=== PATIENT | female | born 1975 | race Caucasian/White ===

== ENCOUNTER 2016-12-05 16:14 | Emergency (ER) | payer OTHER ==
[~2016-12-05] VITALS: Ht 157.5 cm; Wt 108.2 kg
[2016-12-05 16:21] VITALS: BP 176/115; PULSE 83; RESP 18; O2SAT 100
[2016-12-05 17:18] LABS: BASOPHILS % (AUTO) 0.6 % (0-3); Mean Corpuscular Hemoglobin 20.7 pg (27.0-35.0)
[2016-12-05 17:23] LABS: EOSINOPHILS % (AUTO) 2.7 % (0-5); MONOCYTES % (AUTO) 8.2 % (4-12); Mean Corpuscular Volume 63.8 fL (81-100); NEUTROPHILS % (AUTO) 57.6 % (40-74); Platelet Count 407 bil/L (150-400)
--- NOTE | 2016-12-05 18:18 | ED.REPORT ---
HPI-General Illness Date of Service Dec 05, 2016 ED Provider: Dr. Rosangela Suazo M.D. A 41 year old female presents to the ED with hypertension (high of 230/150) onset yesterday. The patient began feeling ill in the morning, with symptoms of shakiness, nausea, dizziness, and headache, and subsequently checked her blood pressure at work. The patient's headache waxes and wanes, is dull in nature, and is rated 7/10 at worst. She denies vision change, numbness, weakness, vomiting, fever, or other symptoms. She has not had similar symptoms in the past. The patient was seen yesterday at the [facility] and was given a prescription for Lisinopril, which she took last night at 2200 with no relief. The patient has an appointment scheduled with her PCP in two weeks. Nursing Notes Stated Complaint: BP IS 210/120 Chief Complaint: General Complaint Nursing Notes Reviewed: Yes Allergies: Coded Allergies: Penicillins (Verified Allergy, Unknown, 12/05/16) Scheduled Hydrochlorothiazide (Hydrochlorothiazide) 12.5 Mg Tablet 12.5 MG PO DAILY General Time Seen by MD: 18:18 Chief Complaint Other (Hypertension) Hx Obtained From: Patient Arrived By: Walk-in Sudden in Onset?: Yes Onset Occurred: Yesterday Symptom Duration: Since onset Location: : Head Quality: Dull, Painful Severity: Current: Moderate Severity: Maximum: Pain level 7 out of 10 Associated with: Reports: Dizziness, Nausea, Denies: Fever, Vomiting Pertinent Negative: Relieved by nothing Recent Healthcare: Recent doctor visit Similar Sx Previous: No Past Medical History Past Medical History None reported Past Surgical History None reported Smoking History Unknown if Ever Smoker Ambulatory Status Independent Review of Systems + Hypertension (high of 230/150) Full Review of Systems Constitutional: Denies: Fever Respiratory: Denies: Non-productive cough, Shortness of breath GI: Reports: Nausea, Denies: Vomiting Neurologic: Reports: Dizziness, Headache, Shaking, Denies: Numbness, Vision change, Weakness Complete sys rev & neg: except as marked. Physical Exam Vital Signs Vital Signs Date Time Temp Pulse Resp B/P Pulse Ox O2 Delivery O2 Flow Rate FiO2 12/05/16 20:35 20 154/82 98 Room Air 12/05/16 20:35 20 154/82 98 Room Air 12/05/16 19:29 172/100 98 Room Air 2 12/05/16 19:09 70 172/89 100 Room Air 12/05/16 18:44 184/100 12/05/16 16:21 36.6 83 18 176/115 100 Room Air Initial VS: Reviewed, Vital signs abnormal General/Constitutional: Well-developed, Well-nourished Neck: Supple, Full range of motion Respiratory: Breath sounds normal, Clear to auscultation, No respiratory distress Skin: Warm, Dry, No cyanosis Psychiatric: Mood/affect normal, Behavior normal, Normal thought content General/Constitutional: Awake, Alert, No acute distress Head / Eyes: Atraumatic, Normocephalic, PERRL, EOMI Cardiovascular: Heart rate NL, Regular rhythm, Heart sounds NL, No murmurs, No rubs Neurologic: Oriented X3, Speech NL, No motor deficits, No sensory deficits Interpretation & Diagnostics URINE TEST: Negative URINE DIPSTICK: 1.010 sp gravity 5 pH Normal Glucose Normal Urobilinogen Otherwise Negative Lab Results Interpretation Result Diagram: 12/05/16 1706 12/05/16 1706 Test 12/05/16 17:06 12/05/16 18:57 White Blood Count 11.7th/mm3 (3.8-10.1) Red Blood Count 5.94mil/mm3 (3.90-5.20) Hemoglobin 12.3g/dL (12.0-15.6) Hematocrit 37.9% (35.0-46.0) Mean Corpuscular Volume 63.8fL (81-100) Mean Corpuscular Hemoglobin 20.7pg (27.0-35.0) Mean Corpuscular Hemoglobin Concent 32.5% (32.0-37.0) Red Cell Distribution Width 17.2% (12.3-15.4) Platelet Count 407bil/L (150-400) Neutrophils (%) (Auto) 57.6% (40-74) Lymphocytes (%) (Auto) 30.7% (14-46) Monocytes (%) (Auto) 8.2% (4-12) Eosinophils (%) (Auto) 2.7% (0-5) Basophils (%) (Auto) 0.6% (0-3) Sodium Level 141mEq/L (134-144) Potassium Level 4.0mEq/L (3.5-5.2) Chloride Level 104mEq/L (97-108) Carbon Dioxide Level 24mmol/L (18-29) Blood Urea Nitrogen 10mg/dL (6-24) Creatinine 0.76mg/dL (0.57-1.00) Estimat Glomerular Filtration Rate 120mL/min (>59) Glucose Level 96mg/dL (60-99) Calcium Level 9.0mg/dL (8.5-10.1) Total Bilirubin 0.5mg/dL (0.0-1.2) Aspartate Amino Transf (AST/SGOT) 25U/L (0-50) Alanine Aminotransferase (ALT/SGPT) 23U/L (0-32) Alkaline Phosphatase 78U/L (25-150) Total Protein 7.7g/dL (6.4-8.4) Albumin 4.3g/dL (3.4-5.0) Hold Kam Top Tube Received (Received) Hold Urine Received (Received) Re-Eval/Medical Decision Med Decision/Clinical Course The patient presents with hypertension, general malaise, and headache. She is neurologically intact. I was wondering if the hypertension was causing a headache or if the pain was causing hypertension. She sees for her headache with complete resolution of her pain and her blood pressure remained somewhat elevated. I do not think the headache is caused from hypertension. The patient had one dose of lisinopril she was told to continue this. She has a follow-up appointment in 2 weeks. She does not show any sign of end organ damage. The headache does not have any concerning features for intracranial mass, meningitis, or subarachnoid hemorrhage. Time of Eval: 20:11 Patient Status: Condition improved Re-Evaluation/Progress Note: Discussed with patient lab results, diagnosis, and plan for discharge. Follow-up and return to the ER instructions given. Patient agrees with plan for care and all questions were addressed. Counseled Regarding: Diagnosis, Lab results, Need for follow-up, When/why to return to ED Discharge & Departure Primary Impression: Poorly-controlled hypertension Additional Impressions: Malaise Headache Headache type: unspecified Headache chronicity pattern: unspecified pattern Intractability: not intractable Qualified Code: R51 - Headache Disposition: Home Discharge Condition All VS Reviewed: Yes Condition: Improved Patient Instructions: Acute Headache (ED), Chronic Hypertension (ED) Additional Instructions: Thank you for entrusting us with your care. Continue taking Lisinopril as prescribed. Also begin taking hydrochlorothiazide tomorrow, as prescribed. If these work well for you, your primary care provider can prescribe a combination pill. Keep the upcoming appointment with your primary care provider. Return to the ER with any new or worsening symptoms. Referrals: NOPCP (PCP) Scribe Attestation Portions of this note were transcribed by Radha Lawton. I, Dr. Suazo, personally performed the history, physical exam, and medical decision-making; I reviewed and confirmed the accuracy of the information in the transcribed note. Signed by: Charissa Whitlock, 12/05/2016, 21:20 Rosangela Suazo MD Dec 05, 2016 18:18 RADHA LAWTON Dec 05, 2016 18:27 reviewed and confirmed the accuracy of the information in the transcribed note. Signed by: Charissa Whitlock, 12/05/2016, 21:20 Rosangela Suazo MD Dec 05, 2016 18:18 RADHA LAWTON Dec 05, 2016 18:27
[2016-12-05] MEDS ORDERED: ProchlorPERazine 5 mg/mL 2 mL Inj IVPUSH ONE (18:30)
[2016-12-05] MEDS ORDERED: Ketorolac 15 mg/mL Inj IVPUSH ONE (18:30)
[2016-12-05] MEDS ORDERED: 0.9% Sodium Chloride 1,000 ML IV ONE (18:30)
[2016-12-05 18:44] VITALS: BP 184/100
[2016-12-05 19:09] VITALS: BP 172/89; PULSE 70; O2SAT 100
[2016-12-05 19:29] VITALS: BP 172/100; O2SAT 98
[2016-12-05] MEDS ORDERED: HYDR12.55 PO (20:16)
[2016-12-05 20:35] VITALS: BP 154/82; RESP 20; O2SAT 98
== END 2016-12-05 20:33 | disposition home or self-care (01) ==
LOC: SED 16:14
DX: I10 Essential (primary) hypertension (principal); R53.81 Other malaise; R51 Headache; R25.1 Tremor, unspecified; R42 Dizziness and giddiness; R11.0 Nausea; Z88.0 Allergy status to penicillin
CPT/HCPCS: 36415; 80053; 81025; 85025; 96361; 96374; 96375; 99284; J0780; J1200; J1885; J7030